=== PATIENT | male | born 1950 | race African-American/Black ===

== ENCOUNTER 2020-12-21 07:43 | Emergency (ER) | payer MEDICARE, SELFPAY ==
[2020-12-21] VITALS (11 sets, daily range): BP systolic 117–142; BP diastolic 65–75; PULSE 55–87; RESP 11–18; TEMP 35.9; O2SAT 96–100
--- NOTE | ~2020-12-21 | CT_ITS ---
EXAMINATION: CT abdomen pelvis wo con DATE: 12/21/2020 09:01 INDICATION: Left flank pain. Hematuria. TECHNIQUE: Computed tomography (CT) of the abdomen and pelvis was performed without intravenous contr ast. Automated exposure control and iterative reconstruction technique were employed. The dose-length product was 323.54 mGy-cm. COMPARISON: None. FINDINGS: The visualized portions of the lung bases demonstrate mild atelectasis. No pleural effusion . There is a pneumatocele in left lower lobe. No pleural effusion. The heart size is normal. No peric ardial effusion. The liver is normal. The gallbladder is absent. The spleen is absent. The pancreas, adrenal glands, and right kidney are normal. There is a 2.6 cm cyst in left kidney. There is no uroli thiasis. The prostate is moderately enlarged. There is a small left inguinal hernia containing fat. T here are no dilated loops of bowel. The appendix is normal. There is a small umbilical hernia contain ing fat. There are no pathologically enlarged lymph nodes. There is no free intraperitoneal fluid. Th ere is moderate lumbar spondylosis. IMPRESSION: 1. No urolithiasis. 2. Small left inguinal hernia containing fat. Reviewed, dictated and finalized at [facility].
--- NOTE | ~2020-12-21 | XR_ITS ---
EXAMINATION: XR chest 2V DATE: 12/21/2020 11:41 INDICATION: Left flank pain. TECHNIQUE: Frontal and lateral views of the chest were obtained. COMPARISON: CT abdomen and pelvis 12/21/2020 FINDINGS: The chest demonstrates clear lungs without pneumonia, pleural effusion, or pneumothorax. Th e heart size is normal. IMPRESSION: 1. No acute cardiopulmonary disease. Reviewed, dictated and finalized at [facility].
--- NOTE | 2020-12-21 08:01 | ED.BACK ---
HPI - Back Pain/Injury General Chief Complaint: Back Pain/Injury Stated Complaint: left flank pain Time Seen by Provider: 12/21/20 08:01 Source: patient Mode of arrival: ambulatory Limitations: no limitations History of Present Illness HPI Narrative: Patient is a 70-year-old male who presents for evaluation of left flank pain. Patient has almost no medical problems, states that on December 11 he noticed some left flank pain after eating that was quite sharp in nature. Pain has been intermittent but persistent since that time. Described as sharp in nature. No radiation to the abdomen or chest. No ripping or tearing sensation. No recent heavy bending or lifting. Patient states his the pain was not improving he wanted to seek care. 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 He denies fever, chills, nausea or vomiting. He reports chronic rash on his bottom for which she has seen a insights strategist for. No worsening rash or lesions over the flank. No bruising. No recent falls or injuries. No dysuria or hematuria. Pain is at time reproducible with movement. He denies chest pain or shortness of breath. No leg swelling or calf pain. No history of coagulopathy. No pleuritic pain. No upper back pain or thoracic pain. Related Data Allergies Allergy/AdvReac Type Severity Reaction Status Date / Time codeine Allergy Unknown Verified 12/21/20 07:52 Review of Systems Review of Systems: Narrative: CONSTITUTIONAL: Denies fever, chills, or sweats. EYES: Denies visual changes, redness, or discharge. ENT: Denies rhinorrhea, congestion, sore throat, or otalgia. CARDIOVASCULAR: Denies chest pain, palpitations, or edema. RESPIRATORY: Denies cough or dyspnea. GASTROINTESTINAL: Denies abdominal pain, nausea, vomiting, or diarrhea. Reports left flank pain. GENITOURINARY: Denies dysuria or hematuria. SKIN: Denies rash or itching. MUSCULOSKELETAL: Denies back pain, joint pain, or myalgia. NEUROLOGIC: Denies headache, numbness, or weakness. [facility] Social History Social History (Updated 12/21/20 @ 08:40 by Henrietta Sharif MD) Smoking status: Current some day smoker Tobacco type: cigars Alcohol intake: never Substance use: never Living arrangements: with family Gender identity (if verbalized by the patient): Male Exam Narrative: Exam Narrative: GENERAL: Awake, alert, conversant HEAD: Normocephalic, atraumatic. EYES: PERRLA and EOMI. ENT: Nares clear, no rhinorrhea or epistaxis. Mucous membranes moist. NECK: Supple. CHEST: No respiratory distress, breathing even and non labored HEART: Regular rate, sinus rhythm ABDOMEN:Non distended, non tender, ventral midline surgical scar, well-healing, reproducible left flank tenderness, left flank is without ecchymoses or lesions. No evidence of vesicles, no mass palpated EXTREMITIES: Normal range of motion. No edema. SKIN: Warm, dry, no rash. NEURO:No focal deficits. Alert and oriented x3 Course Vital Signs Vital signs: Vital Signs Temperature 35.9 C L 12/21/20 07:49 Pulse Rate 68 12/21/20 07:49 Respiratory Rate 17 12/21/20 07:49 Blood Pressure 142/69 H 12/21/20 07:49 Pulse Oximetry 99 12/21/20 07:49 Temperature 35.9 C L 12/21/20 07:49 Pulse Rate 87 12/21/20 12:28 Respiratory Rate 18 12/21/20 12:28 Blood Pressure 133/65 12/21/20 12:28 Pulse Oximetry 100 12/21/20 12:28 MDM - Back Pain/Injury Differential Diagnosis Differential diagnosis: Likely lumbar radiculopathy, sciatica, strain of lumbar region, thoracic back pain and AAA Medical Records Medical records narrative: Patient presented for evaluation of paraspinal lumbar pain, flank pain. No chest pain or shortness of breath. Patient does have risk factors for PE but is not having any symptoms of this. Patient was some reproducible left paraspinal lumbar pain on exam. No overlying vesicles or lesions. No ecchymosis or evidence of trauma. Considered other etiologies such
--- NOTE | 2020-12-21 08:21 | PC.NURSE ---
EPD at bedside.
[2020-12-21 08:26] LABS: Basophils Absolute Auto 0.1 K/mm3 (0.0-0.1); Basophils Percent Auto 1.2 % (0.2-1.2); Eosinophils Absolute Auto 0.5 K/mm3 (0-0.3); Eosinophils Percent Auto 5.1 % (0-4.4); Immature Granulocyte Absolute 0.02 K/mm3 (0.00-0.031); Immature Granulocyte Percent A 0.2 % (0-0.5); Lymphocytes Absolute Auto 3.82 K/mm3 (0.9-3.2); Lymphocytes Percent Auto 39.1 % (18.3-44.2); Mean Corpuscular HGB Conc 34.7 g/dl (32-36); Mean Corpuscular Volume 89.3 fl (80-100); Mean Platelet Volume 9.8 fl (7.4-10.4); Monocytes Absolute Auto 1.2 K/mm3 (0.1-0.6); Monocytes Percent Auto 12.1 % (2.6-8.5); Neutrophils Absolute Auto 4.1 K/mm3 (1.3-6.7); Neutrophils Percent Auto 42.3 % (45.5-73.1); Platelet Count Result 257 k/mm3 (150-375); Red Blood Count 5.49 M/mm3 (4.6-6.20); Red Cell Distribution Width 14.5 % (11.5-14.5); White Blood Count 9.8 K/mm3 (4.5-10.0)
[2020-12-21 08:30] LABS: Add Urine Microscopic? YES; Appearance Urine Clear (Clear); Bacteria Urine Trace /hpf; Bilirubin Urine Negative (Negative); Blood Urine 1+ (Negative); Color Urine Yellow (Yellow); Glucose Urine UA Negative (Negative); Ketones Urine Negative (Negative); Leukocyte Esterase Ur Negative LEU/UL (Negative); Mucus Urine Few /lpf; Nitrate Urine Negative (Negative); Protein Urine Negative (Negative); Specific Grav Ur 1.017 (1.001-1.035); Urobilinogen Urine Negative mg/dL (<2.0); WBC Urine 0-3 /hpf
[2020-12-21 08:36] LABS: Anion Gap 6 mmol/L (8-16); Blood Urea Nitrogen 12 mg/dL (9-20); Calcium 9.3 mg/dL (8.4-10.2); Carbon Dioxide 26 mmol/L (22-30); Chloride 105 mmol/L (98-107); Estimated CRCL calculation 61 ml/min; Estimated Glomerular Filt Rate > 60; Glucose 100 mg/dL (75-110); Sodium 137 mmol/L (137-145)
--- NOTE | 2020-12-21 09:58 | PC.NURSE ---
Pt updated on wait times and plan of care, denies further questions or concerns, vss, call light in reach.
--- NOTE | 2020-12-21 10:32 | PC.NURSE ---
GINNY Sharif at bedside for pt results.
--- NOTE | 2020-12-21 11:36 | PC.NURSE ---
called lab, Henrietta, added on Trop I, PT INR PTT, D Dimer [id number]
[2020-12-21 11:54] LABS: INR 1.1; Prothrombin Time 14.9 Seconds (11.1-14.7)
[2020-12-21 11:55] LABS: Partial Thromboplastin Time 30.3 SECONDS (22.3-36.8)
[2020-12-21 11:57] LABS: D Dimer 0.34 ug/mL (<0.48)
[2020-12-21 12:12] LABS: Troponin I < 0.012 ng/mL (0.000-0.034)
--- NOTE | 2020-12-21 13:11 | PC.NURSE ---
GINNY Sharif at bedside for results
== END 2020-12-21 13:18 | disposition home or self-care (01) ==
PROVIDERS: Emergency Provider Emergency Medicine; PCP Family Medicine
DX: S39.012A Strain of muscle, fascia and tendon of lower back, initial encounter (principal); K40.90 Unilateral inguinal hernia, without obstruction or gangrene, not specified as recurrent; F17.210 Nicotine dependence, cigarettes, uncomplicated; X58.XXXA Exposure to other specified factors, initial encounter
CPT/HCPCS: 36415; 71046; 74176; 80048; 81001; 84484; 85025; 85380; 85610; 85730; 99284

== ENCOUNTER 2022-08-21 13:53 | Emergency (ER) | payer MEDICARE, SELFPAY ==
--- NOTE | ~2022-08-21 | CT_ITS ---
EXAMINATION: CT abdomen pelvis wo con DATE: 08/21/2022 15:40 INDICATION: Right flank pain TECHNIQUE: Computed tomography (CT) of the abdomen and pelvis was performed without intravenous contr ast. Automated exposure control and iterative reconstruction technique were employed. Exam dose: 606 .96 mGy-cm total exam DLP. COMPARISON: 12/21/2020 CT abdomen pelvis FINDINGS: Minimal bilateral predominantly lower lobe dependent atelectasis. The lung bases are clear of consolidation. Heart size is normal. No pericardial or pleural effusion. There are calcifications in the region of the aortic valve. The spleen is absent. Probable approximately 1.6 cm splenule, stable since 12/21/2020. Status post cholecystectomy. No bile duct or pancreatic duct dilatation. No hepatic space-occupying mass lesion or bile duct dilatation. No pancreatic mass lesion, calcificat ion or ductal dilatation. Normal morphology of the adrenal glands. Approximately 2.5 cm left renal cyst.. The kidneys are otherwise unremarkable on this limited noncont rast examination. No hydroureteronephrosis. Prostate enlargement. Moderate diffuse thickening of the urinary bladder wall. The bladder is largely evacuated. There is atherosclerotic calcification but no aneurysm of the abdominal aorta. There are probably joey cification at the origins of the renal arteries, celiac and to a lesser extent superior mesenteric ar kaley and prominent calcification of the origin of the inferior mesenteric artery. No intraperitoneal or retroperitoneal or pelvic mass lesion, adenopathy or ascites is noted. Occasional small and large bowel air-fluid levels are noted but there is no abnormal dilatation or ab normal wall thickening of the small or large bowel suggests obstruction Status post lower left anterior pelvic wall surgical repair. Small fat-containing left inguinal hernia. Prominent bilateral hip osteoarthritis. Diffuse idiopathic skeletal hyperostosis of the lower thoracic spine. There is prominent degenerative changes apophyseal joints of the lumbar spine with associated grade 1 anterolisthesis at L3-4 and L4 -5. Moderately severe degenerative disc disease and mild retrolisthesis at L5-S1. No suspicious osteolytic or osteoblastic lesions are noted. IMPRESSION: No no acute finding or significant change since 12/21/2020 Reviewed, dictated and finalized at [facility]. Reviewed, dictated and finalized at [facility]. [facility] [employer]
[2022-08-21 13:57] VITALS: BP 139/70; PULSE 64; RESP 14; TEMP 36.3; O2SAT 98
[2022-08-21 14:52] LABS: Basophils Absolute Auto 0.1 K/mm3 (0.0-0.1); Basophils Percent Auto 1.2 % (0.2-1.2); Eosinophils Absolute Auto 0.4 K/mm3 (0-0.3); Eosinophils Percent Auto 5.6 % (0-4.4); Hematocrit 48.4 % (42.0-52.0); Hemoglobin 16.3 g/dL (14.0-18.0); Immature Granulocyte Absolute 0.02 K/mm3 (0.00-0.031); Immature Granulocyte Percent A 0.3 % (0-0.5); Lymphocytes Absolute Auto 2.97 K/mm3 (0.9-3.2); Lymphocytes Percent Auto 38.5 % (18.3-44.2); Mean Corpuscular HGB Conc 33.7 g/dl (32-36); Mean Corpuscular Hemoglobin 30.2 pg (26-34); Mean Corpuscular Volume 89.8 fl (80-100); Mean Platelet Volume 10.3 fl (7.4-10.4); Monocytes Absolute Auto 0.9 K/mm3 (0.1-0.6); Monocytes Percent Auto 11.4 % (2.6-8.5); Neutrophils Absolute Auto 3.3 K/mm3 (1.3-6.7); Platelet Count Result 273 k/mm3 (150-375); Red Blood Count 5.39 M/mm3 (4.6-6.20); Red Cell Distribution Width 14.8 % (11.5-14.5); White Blood Count 7.7 K/mm3 (4.5-10.0)
[2022-08-21 15:07] LABS: Alanine Aminotransferase 16 U/L (6-50); Albumin Level 4.7 g/dL (3.5-5.1); Alkaline Phosphatase 80 U/L (38-126); Anion Gap 4 mmol/L (8-16); Aspartate Amino Transferase 28 U/L (17-59); Blood Urea Nitrogen 10 mg/dL (9-20); Calcium 8.9 mg/dL (8.4-10.2); Carbon Dioxide 29 mmol/L (22-30); Chloride 102 mmol/L (98-107); Estimated CRCL calculation 73 ml/min; Estimated Glomerular Filt Rate > 60; Glucose 96 mg/dL (65-110); Lipase 68 U/L (23-300); Sodium 135 mmol/L (137-145)
--- NOTE | 2022-08-21 15:08 | ED.ABDPAIN ---
HPI - Abdominal Pain General Chief Complaint: Abdominal Pain Stated Complaint: Right flank pain Time Seen by Provider: 08/21/22 14:25 Source: patient and RN notes reviewed Mode of arrival: ambulatory Limitations: no limitations History of Present Illness HPI narrative: This is a 72 year old male who presents for evaluation of right flank pain for 3 weeks. He reports sharp right flank pain that is intermittent and it will radiate to right lower abdomen. He reports his pain seems to be worse with certain positions. He states he had pain this morning when he was getting out of his truck. He denies associated nausea, vomiting, fever, chills, testicular pain, swelling or urinary symptoms. He has not taken any medication for his pain. He is concerned that his pain is due to kidney stone. He denies history of kidney stones in the past. Related Data Allergies Allergy/AdvReac Type Severity Reaction Status Date / Time codeine Allergy Unknown Verified 12/21/20 07:52 Review of Systems Review of Systems: All systems reviewed & are unremarkable except as noted in HPI and below PMFSH Past Medical History Medical History (Updated 08/21/22 @ 16:46 by Bonita Romero MD) Patient denies medical problems Surgical History Surgical History (Updated 08/21/22 @ 15:14 by Bonita Romero MD) Hx of cholecystectomy Social History Social History (Updated 12/21/20 @ 08:40 by Henrietta Sharif MD) Smoking status: Current some day smoker Tobacco type: cigars Alcohol intake: never Substance use: never Gender identity (if verbalized by the patient): Male Exam Const: General: no acute distress and alert Nutritional Appearance: well nourished Orientation/consciousness: patient oriented x3 Limitations: no limitations HENMT: Head: normal to inspection Eyes: EOM: EOMs intact bilaterally Neck: Neck: normal visual inspection Resp: Effort & Inspection: normal respiratory effort Auscultation: clear to auscultation bilaterally Cardio: Rate: regular rate Rhythm: regular rhythm Heart sounds: no murmurs GI: GI Palp: Yes Soft to palpation, No Tenderness to palpation present (GI), No Guarding due to palpation present (GI) and No Rigid due to palpation Auscultation: normal bowel sounds Back/Spine/Pelvis: Back: no CVA tenderness Skin: General skin exam: normal color Rashes: no rashes Wounds: no wounds Neuro: General: patient oriented x3, moves all extremities and CN's II-XI intact bilaterally Extrem: General: normal to inspection Psych: Mental Status: mental status grossly normal Affect: normal affect Attitude: cooperative Course Reevaluation(s) Reevaluation #1: I have discussed with patient that CT show and that his pain is likely due to musculoskeletal pain. Date: 08/21/22 Time: 16:42 Vital Signs Vital signs: Vital Signs Temperature 97.4 F L 08/21/22 13:57 Pulse Rate 64 08/21/22 13:57 Respiratory Rate 14 08/21/22 13:57 Blood Pressure 139/70 08/21/22 13:57 Pulse Oximetry 98 08/21/22 13:57 Oxygen Delivery Room Air 08/21/22 13:57 Temperature 97.4 F L 08/21/22 13:57 Pulse Rate 78 08/21/22 16:46 Respiratory Rate 16 08/21/22 16:46 Blood Pressure 141/76 H 08/21/22 16:46 Pulse Oximetry 98 08/21/22 16:46 Oxygen Delivery Room Air 08/21/22 13:57 MDM - Abdominal Pain Lab Data Attestation: I reviewed the patient's lab results. 08/21/22 14:32 08/21/22 14:32 Labs: Lab Results 08/21/22 08/21/22 08/21/22 Range/Units 14:32 14:32 15:56 WBC 7.7 (4.5-10.0) K/mm3 RBC 5.39 (4.6-6.20) M/mm3 Hgb 16.3 (14.0-18.0) g/dL Hct 48.4 (42.0-52.0) % MCV 89.8 (80-100) fl MCH 30.2 (26-34) pg MCHC 33.7 (32-36) g/dl RDW 14.8 H (11.5-14.5) % Plt Count 273 (150-375) k/mm3 MPV 10.3 (7.4-10.4) fl Immature Gran % (Auto) 0.3 (0-0.5) % Neut % (Auto) 43.0 L (45.5-73.1) % Lymph % (Auto) 38.5 (18.3
[2022-08-21 16:08] LABS: Add Urine Microscopic? YES; Appearance Urine Clear (Clear); Bilirubin Urine Negative (Negative); Blood Urine Trace-Intact (Negative); Color Urine Light Yellow (Yellow); Glucose Urine UA Negative (Negative); Ketones Urine Negative (Negative); Leukocyte Esterase Ur Negative LEU/UL (Negative); Nitrate Urine Negative (Negative); Protein Urine Negative (Negative); Specific Grav Ur 1.015 (1.001-1.035); Urobilinogen Urine 0.2 mg/dL (<2.0)
[2022-08-21 16:14] LABS: WBC Urine 0-3 /hpf
[2022-08-21 16:46] VITALS: BP 141/76; PULSE 78; RESP 16; O2SAT 98
== END 2022-08-21 16:50 | disposition home or self-care (01) ==
PROVIDERS: Emergency Medicine; Emergency Provider General Practice
DX: R10.9 Unspecified abdominal pain (principal); F17.290 Nicotine dependence, other tobacco product, uncomplicated
CPT/HCPCS: 36415; 74176; 80053; 81001; 83690; 85025; 99284